=== PATIENT | male | born 1965 | race Caucasian/White ===

== ENCOUNTER 2018-10-15 16:41 | Emergency (ER) | payer SELFPAY ==
[~2018-10-15] VITALS: Ht 185.4 cm; Wt 93.0 kg
[2018-10-15] MEDS ORDERED: LIDOCAINE 2% 20 ML (XYLOCAINE) VIAL INJ ONE (17:15)
[2018-10-15] MEDS ORDERED: CLINDAMYCIN 900 MG/50 ML IVPB 50 ML IV ONE (17:15)
--- NOTE | 2018-10-15 17:20 | ED Integumentary General ---
General Stated Complaint: SCROTUM WOUND INFECTION Source: patient Exam Limitations: no limitations History of Present Illness Date Seen by Provider: Oct 15, 2018 Time Seen by Provider: 17:15 Initial Comments To ER with reports of a an infection to the groin. He's been seen by primary care and had incision and drainage done to this at [facility] on 10/12/18. He is on Bactrim at this time. Culture results show Staphylococcus aureus without evidence of resistance to oxacillin/methicillin. Wound persists. He was seen by primary care today and referred here to the emergency room due to concerns for "gangrene". He is not diabetic. Timing/Duration: just prior to arrival Severity: moderate Location: genitalia Allergies and Home Medications Allergies Coded Allergies: ibuprofen (Verified Allergy, Unknown, 10/15/18) Home Medications Clindamycin HCl 300 Mg Capsule, 300 MG PO TID Prescribed by: WES WEBB on 10/15/181847 Hydrocodone/Acetaminophen 1 Each Tablet, 1 EACH PO Q6H PRN for PAIN-MODERATE Prescribed by: WES WEBB on 10/15/181847 Patient Home Medication List Home Medication List Reviewed: Yes Review of Systems Review of Systems Constitutional: see HPI, chills; No fever EENTM: see HPI Respiratory: no symptoms reported Cardiovascular: no symptoms reported Genitourinary: no symptoms reported Musculoskeletal: no symptoms reported Skin: see HPI Psychiatric/Neurological: No Symptoms Reported Endocrine: No Symptoms Reported Past Tzgsful-Jdwklv-Jsrsjh Hx Patient Social History Recent Foreign Travel: No Contact w/Someone Who Travel: No Physical Exam Vital Signs Vital Signs - First Documented 10/15/18 17:08 Temp 96.9 Pulse 76 Resp 18 B/P (MAP) 140/95 (110) Pulse Ox 97 O2 Delivery Room Air Capillary Refill : General Appearance: WD/WN, no apparent distress HEENT: PERRL/EOMI, normal ENT inspection Respiratory: no respiratory distress, no accessory muscle use Neurologic/Psychiatric: alert, normal mood/affect, oriented x 3 Skin: normal color, warm/dry, other (there is an area about 3 cm in diameter to the left side of the mons pubis superior to the scrotum with significant induration. Within this is a central punctum from the incision and drainage wound where there continues to be some purulent material able to be expressed. Surrounding this incision is about 5 cm of erythema. The scrotum itself is not erythematous, there is no crepitus or thickening of the skin of the scrotum to suggest scrotal cellulitis or fourniers gangrene.) Skin Problem Character: abscess Procedures/Interventions I&D : Blade Size: 11 Progress Anesthetized with 0.2 mL of lidocaine without epinephrine. Stab incision made with 11 blade scalpel. Moderate amount of purulent material expressed. Progress/Results/Core Measures Results/Orders Lab Results Laboratory Tests Test 10/15/18 17:21 Range/Units White Blood Count 9.2 4.3-11.0 10^3/uL Red Blood Count 5.17 4.35-5.85 10^6/uL Hemoglobin 16.4 13.3-17.7 G/DL Hematocrit 47 40-54 % Mean Corpuscular Volume 90 80-99 FL Mean Corpuscular Hemoglobin 32 25-34 PG Mean Corpuscular Hemoglobin Concent 35 32-36 G/DL Red Cell Distribution Width 13.1 10.0-14.5 % Platelet Count 276 130-400 10^3/uL Mean Platelet Volume 9.5 7.4-10.4 FL Neutrophils (%) (Auto) 57 42-75 % Lymphocytes (%) (Auto) 29 12-44 % Monocytes (%) (Auto) 8 0-12 % Eosinophils (%) (Auto) 6 0-10 % Basophils (%) (Auto) 0 0-10 % Neutrophils # (Auto) 5.2 1.8-7.8 X 10^3 Lymphocytes # (Auto) 2.6 1.0-4.0 X 10^3 Monocytes # (Auto) 0.7 0.0-1.0 X 10^3 Eosinophils # (Auto) 0.6 H 0.0-0.3 10^3/uL Basophils # (Auto) 0.0 0.0-0.1 10^3/uL Sodium Level 138 135-145 MMOL/L Potassium Level 3.8 3.6-5.0 MMOL/L Chloride Level 107 98-107 MMOL/L Carbon Dioxide Level 19 L 21-32 MMOL/L Anion Gap 12 5-14 MMOL/L Blood Urea Nitrogen 8 7-18 MG/DL Creatinine 1.07 0.60-1.30 MG/DL Estimat Glomerular Filtration Rate > 60 BUN/Creatinine Ratio 7 Glucose Level 110 H 70-105 MG/DL Calcium Level 9.4 8.5-10.1 MG/DL My Orders Orders - WES WEBB REGISTERED MIDWIFE Cbc With Automated Diff (10/15/18 17:13) Basic Metabolic Panel (10/15/18 17:13) Ct Pelvis W (10/15/18 17:13) Lidocaine 2% Injection 20 Ml (Xylocaine (10/15/18 17:15) Clindamycin 900 Mg/50 Ml Ivpb (Cleocin P (10/15/18 17:15) Iohexol Injection (Omnipaque 350 Mg/Ml 1 (10/15/18 18:00) Contrast Received (Contrast Received) (10/15/18 18:00) Ns (Ivpb) (Sodium Chloride 0.9%) (10/15/18 18:00) Lidocaine 1% Inj 20 Ml (Xylocaine 1% Inj (10/15/18 18:02) Lidocaine 1% Inj 20 Ml (Xylocaine 1% Inj (10/15/18 18:45) Medications Given in ED Current Medications Medications Dose Ordered Sig/Lewis Route Start Time Stop Time Status Last Admin Dose Admin Clindamycin Phosphate/Dextrose 50 ml @ 100 mls/hr ONCE ONCE IV 10/15/18 17:15 12 17:44 DC 10/15/18 18:16 100 MLS/HR Iohexol 100 ml ONCE ONCE IV 10/15/18 18:00 10/15/18 18:01 DC 10/15/18 18:02 100 ML Lidocaine HCl 20 ml STK-MED ONCE .ROUTE 10/15/18 18:02 10/15/18 18:05 DC 10/15/18 18:16 20 ML Sodium Chloride 250 ml ONCE ONCE IV 10/15/18 18:00 10/15/18 18:01 DC 10/15/18 18:02 80 ML Vital Signs/I&O 10/15/18 17:08 Temp 96.9 Pulse 76 Resp 18 B/P (MAP) 140/95 (110) Pulse Ox 97 O2 Delivery Room Air Departure Communication (Admissions) 0972-labs are unremarkable. CT shows inflammatory change but no fluid collection. No soft tissue gas to support foreign use gangrene. This been ongoing for nearly a week. I will add clindamycin to his outpatient regimen and we will discharge to home for follow-up within 24-48 hours. I discussed with Dr. Beckman and she agrees with this plan. Impression Primary Impression: Abscess of pubic region Disposition: 01 HOME, SELF-CARE Condition: Stable Departure-Patient Inst. Decision time for Depature: 18:25 Referrals: [facility] (PCP/Family) Primary Care Physician Patient Instructions: Abscess Incision and Drainage (DC) Add. Discharge Instructions: 1. Warm compresses to this area 2. Change the gauze as needed to collect the drainage 3. Take your dose of Bactrim tonight then stop the Bactrim tomorrow and replace it with a new medication called clindamycin. 4. REturn PROMPTLY to Er for any increasing redness, pain, fevers. Call your regular doctor tomorrow to make an appointment to be seen within 24-48 hours. Scripts Hydrocodone/Acetaminophen ([place] 5-325 Tablet) 1 Each Tablet 1 EACH PO Q6H PRN for PAIN-MODERATE MDD 10, #10 TAB Prov: WES WEBB APRN 10/15/18 Clindamycin HCl (Clindamycin HCl) 300 Mg Capsule 300 MG PO TID, #21 CAP Prov: WES WEBB APRN 10/15/18 Work/School Note: Work Release Form Date Seen in the Emergency Department: Oct 15, 2018 Return to Work: Oct 21, 2018 Images Female/Male 1 - Cellulitis WES WEBB APRN Oct 15, 2018 17:20
--- OUTSIDE RECORDS SUMMARY | 2018-10-15 17:26 | XMS REPORT | Continuity of Care Document ---
Author Author [facility] Address Unknown Phone Unavailable Allergies Active Description Code Type Severity Reaction Onset Reported/Identified Relationship to Patient Clinical Status Yes Motrin Drug Allergy N/A N/A 12/17/2013 Medications There is no data. Problems Date Dx Coded Attending Type Code Diagnosis Diagnosed By 12/17/2013 MISHA ORDONEZ APRN 782.9 dry skin Procedures There is no data. Results There is no data. Encounters ACCT No. Visit Date/Time Discharge Status Pt. Type Provider Facility Loc./Unit Complaint [id number] 12/17/2013 08:56:00 12/17/2013 23:59:59 CLS Outpatient MISHA ORDONEZ APRN
--- OUTSIDE RECORDS SUMMARY | 2018-10-15 17:26 | XMS REPORT ---
Author MISHA Victoria [facility] eClinicalWorks Address Unknown Phone Unavailable Care Team Providers Care Safety Patrol Officer Name Role Phone MISHA ORDONEZ CP Unavailable Allergies No Known Allergies Problems Problem Type Condition Code Onset Dates Condition Status Assessment Routine history and physical examination of adult V70.0 Active Assessment Urinary frequency R35.0 Active Medications No Known Medications Procedures Procedure Coding System Code Date ASSAY OF PSA, FREE CPT-4 66046 May 17, 2016 LIPID PANEL CPT-4 64747 May 17, 2016 ASSAY OF PSA, TOTAL CPT-4 88062 May 17, 2016 VENIPUNCT, ROUTINE* CPT-4 60526 May 17, 2016 COMPREHEN METABOLIC PANEL CPT-4 23727 May 17, 2016 Results No Known Results Summary Purpose Storage By [employer] Submission
--- OUTSIDE RECORDS SUMMARY | 2018-10-15 17:26 | XMS REPORT ---
Author Author MISHA ORDONEZ [facility] [place] Address [address] [place] [address] Care Team Providers Care Pattern Marker Name Role Phone MISHA ORDONEZ Unavailable PROBLEMS Type Condition ICD9-CM Code [id number] Code Onset Dates Condition Status SNOMED Code Problem Wheezing R06.2 Active 53650972 Problem Tobacco abuse counseling Z71.6 Active 677974436 Problem Acute non-recurrent frontal sinusitis J01.10 Active 87169843 ALLERGIES Substance Reaction Event Type Date Status Motrin rash Drug Allergy Apr, Active ENCOUNTERS Encounter Location Date Diagnosis [facility] [place] [address] [id number] [place] [phone] Apr, Allergic rhinitis, unspecified seasonality, unspecified trigger J30.9 ; Bronchitis J40 ; Tobacco abuse Z72.0 and Tobacco abuse counseling Z71.6 [facility] [address] [id number] [place] [id number] Nov, Acute non-recurrent frontal sinusitis J01.10 ; Wheezing R06.2 and Tobacco abuse counseling Z71.6 [facility] [place] [address] [facility] [address] [id number] JOSEPH[place] [id number] Dec, Bronchitis J40 ; Tobacco abuse Z72.0 ; Tobacco abuse counseling Z71.6 and Acute non-recurrent maxillary sinusitis J01.00 [facility]ENTERPurkinjeANGELA [facility]ILLE [address] [facility] [address] [id number] [place] [id number] Dec, [facility] [id number] JOSEPH[place] [id number] Jul, [facility]Group[facility]alent [facility] [id number] [place] [id number] May, [facility]ITAL[facility] EasyMAR[address]ZANGEL[place] [address] [id number] JOSE[place] [id number] May, Urinary frequency R35.0 and Routine history and physical examination of adult V70.0 [facility] [address] [id number] [place] [id number] May, Right groin pain R10.30 ; S/P unilateral hernia repair Z98.89 ; Urinary frequency R35.0 ; Overweight E66.3 and Diabetes mellitus screening Z13.1 [facility] [address] [id number] JOSEPH[place] [id number] March, Bronchitis J40 ; Tobacco abuse Z72.0 ; Tobacco abuse counseling Z71.6 and Acute non-recurrent sinusitis, unspecified location J01.90 [facility] [address] [id number] JO[place]PH[place] [phone] May, zzCHCSEK [place] [address] [facility] [id number] [place] [id number] May, [facility] [address] [id number] JOSE[place] [id number] May, [address] [id number] JOSEPH, [place] [phone] May, [address] [id number] [place] [id number] May, Inguinal hernia 550.90 and Routine history and physical examination of adult V70.0 [facility]ENTERSEK [address] [id number] JOSEPH[place] [id number] May, [address] [id number] [place] [phone] May, Inguinal hernia 550.90 and Routine history and physical examination of adult V70.0 [facility] [place] [address] [id number] JOSEPH[place] [id number] May, Allergic rhinitis 477.9 ; Sebaceous cyst 706.2 and Headache 784.0 [facility] [place] [address] [facility] [id number] SPR[place] [id number] Feb, [facility] [place] [address] [facility] [id number] [place] [address] Feb, [facility] [place] [address] [facility] [id number] [place] [address] Jan, [facility] [place] [address] [facility] [id number] [place] [address] Jan, [facility] [place] [address] [facility] [id number] [place] [address] Dec, [facility] [place] [address] [facility] [id number] [place] [address] Dec, IMMUNIZATIONS Vaccine Route Administration Date Status SOLUMEDROL (UP TO 125 MG) IM Intramuscular April 26, 2018 Administered SOCIAL HISTORY Never Assessed REASON FOR VISIT Dry cough and sinus congestion/drainage x 3 days. [email or web address] PLAN OF CARE Activity Details Follow Up prn Reason: VITAL SIGNS Height 70 in 2018-04-26 Weight 209.2 lbs 2018-04-26 Temperature 98.6 degrees Fahrenheit 2018-04-26 Heart Rate 70 bpm 2018-04-26 Respiratory Rate 16 2018-04-26 BMI 30.01 kg/m2 2018-04-26 Blood pressure systolic 124 mmHg 2018-04-26 Blood pressure diastolic 68 mmHg 2018-04-26 MEDICATIONS Medication Instructions Dosage Frequency Start Date End Date Duration Status ProAir HFA 108 (90 Base) MCG/ACT Inhalation every 4-6 hours as needed 2 puffs as needed Dec, Not-Taking Rhinocort Allergy 32 MCG/ACT Nasally Once a day 1 puffs in each nostril 24h Dec, Not-Taking Ventolin HFA 108 (90 Base) MCG/ACT Inhalation every 6 hrs 2 puffs as needed 6h Nov, 07 days Not-Taking Benadryl 25 mg 1-2 capsule by Oral route every 4-6 hours PRN Dec, Not-Taking Cetirizine HCl 10 mg Orally Once a day 1 tablet 24h March, Active Simvastatin 20 mg Orally Once a day 1 tablet in the evening 24h May, Not-Taking Flomax 0.4 MG Orally Once a day 1 capsule 24h May, Not- Taking Mometasone Furoate 50 MCG/ACT Nasally Once a day 2 sprays in each nostril 24h Apr, Active ProAir RespiClick 108 (90 Base) MCG/ACT Inhalation every 6 hrs 2 puffs as needed 6h Apr, Active RESULTS No Results PROCEDURES No Known procedures INSTRUCTIONS MEDICATIONS ADMINISTERED No Known Medications MEDICAL (GENERAL) HISTORY Type Description Date Medical History inguinal hernia Surgical History cholecystectomy 2009 Surgical History hernia repair 07/21 Hospitalization History Surgery(s) only
--- OUTSIDE RECORDS SUMMARY | 2018-10-15 17:26 | XMS REPORT ---
Author Author LEIDA LAU [facility] Address [address] [place] [address] Care Team Providers Care Database Specialist Name Role Phone LEIDA LAU Unavailable PROBLEMS Type Condition ICD9-CM Code FOI17-FN Code Onset Dates Condition Status SNOMED Code Problem Wheezing R06.2 Active 56991517 Problem Tobacco abuse counseling Z71.6 Active 616534267 Problem Acute non-recurrent frontal sinusitis J01.10 Active 54816812 ALLERGIES Substance Reaction Event Type Date Status Motrin rash Drug Allergy Nov, Active ENCOUNTERS Encounter Location Date Diagnosis [facility] [address] [id number], [place] [phone] Nov, Acute non-recurrent frontal sinusitis J01.10 ; Wheezing R06.2 and Tobacco abuse counseling Z71.6 [facility] [address] [id number], [place] [phone] Dec, Bronchitis J40 ; Tobacco abuse Z72.0 ; Tobacco abuse counseling Z71.6 and Acute non-recurrent maxillary sinusitis J01.00 [facility] [address] [facility] [address] [id number], [place] [id number] Dec, [facility]ITALApange[facility] Learning [facility] [address] [facility] [address] [id number], [place] [phone] Jul, [facility] [address] [id number], [place] [phone] May, [facility] [address] [facility] [address] [id number], [place] [id number] May, Urinary frequency R35.0 and Routine history and physical examination of adult V70.[address] [id number], [place] [id number] May, Right groin pain R10.30 ; S/P unilateral hernia repair Z98.89 ; Urinary frequency R35.0 ; Overweight E66.3 and Diabetes mellitus screening Z13.1 [facility] [address] [id number], [place] [id number] March, Bronchitis J40 ; Tobacco abuse Z72.0 ; Tobacco abuse counseling Z71.6 and Acute non-recurrent sinusitis, unspecified location J01.90 [facility] [address] [id number], [place] [id number] May, zzCHCSEK [place] [address] [facility] [id number], [place] [phone] May, [facility] [address] [id number], [place] [phone] May, [facility] [address] [id number], [place] [id number] May, [facility] [address] [id number], [place] [id number] May, Inguinal hernia 550.90 and Routine history and physical examination of adult V70.0 [facility] [address] [id number], [place] [phone] May, [facility] [address] [id number], [place] [id number] May, Inguinal hernia 550.90 and Routine history and physical examination of adult V70.0 [facility] [address] [id number], [place] [id number] May, Allergic rhinitis 477.9 ; Sebaceous cyst 706.2 and Headache 784.0 [facility] [id number] [address] Feb, [facility] [id number] [place] [address] Feb, [facility] [id number] [place] [address] Jan, [facility] [address] [facility] [id number] [address] Jan, [facility] [address] [facility] [id number] [address] Dec, [facility] [address] [facility] [id number] [address] Dec, IMMUNIZATIONS No Known Immunizations SOCIAL HISTORY Never Assessed REASON FOR VISIT Sinus c/o, cough, headaches and sinus congestion.[facility] INTERVIEWS INTERN PLAN OF CARE Activity Details Follow Up prn Reason: VITAL SIGNS Height 70 in 2017-11-09 Weight 207.0 lbs 2017-11-09 Temperature 100.7 degrees Fahrenheit 2017-11-09 Heart Rate 83 bpm 2017-11-09 Respiratory Rate 18 2017-11-09 Oximetry 95 % 2017-11-09 BMI 29.70 kg/m2 2017-11-09 Blood pressure systolic 124 mmHg 2017-11-09 Blood pressure diastolic 82 mmHg 2017-11-09 MEDICATIONS Medication Instructions Dosage Frequency Start Date End Date Duration Status Benadryl 25 mg 1-2 capsule by Oral route every 4-6 hours PRN Dec, Not-Taking Cetirizine HCl 10 mg Orally Once a day 1 tablet 24h March, Not -Taking Flomax 0.4 MG Orally Once a day 1 capsule 24h May, Not- Taking Augmentin 875-125 MG Orally every 12 hrs 1 tablet 12h Nov,Nov 14 days Active ProAir HFA 108 (90 Base) MCG/ACT Inhalation every 4-6 hours as needed 2 puffs as needed Dec, Not-Taking Rhinocort Allergy 32 MCG/ACT Nasally Once a day 1 puffs in each nostril 24h Dec, Not-Taking Simvastatin 20 mg Orally Once a day 1 tablet in the evening 24h May, Not-Taking Ventolin HFA 108 (90 Base) MCG/ACT Inhalation every 6 hrs 2 puffs as needed 6h Nov, 07 days Active RESULTS Name Result Date Reference Range INFLUENZA A & B (IN HOUSE) 2017-11-09 INFLUENZA A neg INFLUENZA B neg Control pos Lot # [id number] Exp date 02/03/2020 PROCEDURES Procedure Date Ordered Result Body Site MEASURE BLOOD OXYGEN LEVEL Nov 09, 2017 ALBUTEROL INHAL UNIT DOSE 1 MG Nov 09, 2017 INFLUENZA ASSAY W/OPTIC Nov 09, 2017 NEB/MDI RX INITIAL Nov 09, 2017 INSTRUCTIONS MEDICATIONS ADMINISTERED No Known Medications MEDICAL (GENERAL) HISTORY Type Description Date Medical History inguinal hernia Surgical History cholecystectomy 2009 Surgical History hernia repair 07/21 Hospitalization History Surgery(s) only
--- OUTSIDE RECORDS SUMMARY | 2018-10-15 17:26 | XMS REPORT ---
Author MISHA [facility] eClinicalWorks Address Unknown Phone Unavailable Care Team Providers Care Purse Seiner Name Role Phone MISHA ORDONEZ CP Unavailable Allergies, Adverse Reactions, Alerts Substance Reaction Event Type Motrin rash Drug Allergy Problems Problem Type Condition Code Onset Dates Condition Status Assessment S/P unilateral hernia repair Z98.89 Active Assessment Urinary frequency R35.0 Active Assessment Right groin pain R10.30 Active Assessment Overweight E66.3 Active Assessment Diabetes mellitus screening Z13.1 Active Medications Medication Code System Code Instructions Start Date End Date Status Dosage Flomax [facility] [address]-13 0.4 MG Orally Once a day May 16, 2016 1 capsule Procedures Procedure Coding System Code Date Office Visit, Est Pt., Level 4 CPT-4 58442 May 16, 2016 URINALYSIS, AUTO, W/O SCOPE CPT-4 98450 May 16, 2016 Vital Signs Date/Time: May 16, 2016 Cardiac Monitoring Heart Rate 83 bpm Weight 202.4 lbs Height 70 in Blood Pressure Diastolic 64 mmHg Blood Pressure Systolic 120 mmHg Results No Known Results Summary Purpose eClinicalWorks Submission
--- OUTSIDE RECORDS SUMMARY | 2018-10-15 17:26 | XMS REPORT ---
Author Author MISHA ORDONEZ [facility] Address [address] [place] [address] Care Team Providers Care Supervisor Public Message Service Name Role Phone MISHA ORDONEZ Unavailable PROBLEMS Unknown Problems ALLERGIES Unknown Allergies SOCIAL HISTORY No smoking Hx information available PLAN OF CARE VITAL SIGNS MEDICATIONS Unknown Medications RESULTS No Results PROCEDURES No Known procedures IMMUNIZATIONS No Known Immunizations
--- OUTSIDE RECORDS SUMMARY | 2018-10-15 17:26 | XMS REPORT ---
Author MISHA [facility] Address [address] [place] [address] Care Team Providers Care Upholstery Mechanic Name Role Phone MISHA ORDONEZ Unavailable PROBLEMS Unknown Problems ALLERGIES No Information SOCIAL HISTORY Never Assessed PLAN OF CARE VITAL SIGNS MEDICATIONS No Known Medications RESULTS No Results PROCEDURES No Known procedures IMMUNIZATIONS No Known Immunizations MEDICAL (GENERAL) HISTORY Type Description Date Medical History inguinal hernia Surgical History cholecystectomy 2009 Surgical History hernia repair 07/21 Hospitalization History Surgery(s) only
--- OUTSIDE RECORDS SUMMARY | 2018-10-15 17:26 | XMS REPORT ---
Author Author MISHA ORDONEZ [facility] Address [address] [place] [address] Care Team Providers Care Carbonation Equipment Tender Name Role Phone MISHA ORDONEZ Unavailable PROBLEMS Unknown Problems ALLERGIES Substance Reaction Event Type Date Status Motrin rash Drug Allergy Dec, Active SOCIAL HISTORY Never Assessed PLAN OF CARE Activity Details Follow Up prn Reason: VITAL SIGNS Height 70 in 2016-12-31 Weight 205 lbs 2016-12-31 Temperature 97.5 degrees Fahrenheit 2016-12-31 Heart Rate 82 bpm 2016-12-31 Respiratory Rate 16 2016-12-31 BMI 29.41 kg/m2 2016-12-31 Blood pressure systolic 118 mmHg 2016-12-31 Blood pressure diastolic 68 mmHg 2016-12-31 MEDICATIONS Medication Instructions Dosage Frequency Start Date End Date Duration Status Rhinocort Allergy 32 MCG/ACT Nasally Once a day 1 puffs in each nostril 24h Dec, Active ProAir HFA 108 (90 Base) MCG/ACT Inhalation every 4-6 hours as needed 2 puffs as needed Dec, Active Doxycycline Hyclate 100 mg Orally every 12 hrs 1 capsule 12h Dec, Jan, 10 days Active RESULTS No Results PROCEDURES No Known procedures IMMUNIZATIONS No Known Immunizations MEDICAL (GENERAL) HISTORY Type Description Date Medical History inguinal hernia Surgical History cholecystectomy 2009 Surgical History hernia repair 07/21 Hospitalization History Surgery(s) only
[2018-10-15 17:33] LABS: BASOPHILS % (AUTO) 0 % (0-10); EOSINOPHILS # (AUTO) 0.6 10^3/uL (0.0-0.3); EOSINOPHILS % (AUTO) 6 % (0-10); HEMATOCRIT 47 % (40-54); HEMOGLOBIN 16.4 G/DL (13.3-17.7); LYMPHOCYTES # (AUTO) 2.6 X 10^3 (1.0-4.0); LYMPHOCYTES % (AUTO) 29 % (12-44); MEAN CORPUSCULAR HEMOGLOBIN 32 PG (25-34); MEAN CORPUSCULAR HGB CONC 35 G/DL (32-36); MEAN CORPUSCULAR VOLUME 90 FL (80-99); MEAN PLATELET VOLUME 9.5 FL (7.4-10.4); MONOCYTES # (AUTO) 0.7 X 10^3 (0.0-1.0); MONOCYTES % (AUTO) 8 % (0-12); NEUTROPHILS # (AUTO) 5.2 X 10^3 (1.8-7.8); NEUTROPHILS % (AUTO) 57 % (42-75); PLATELET COUNT 276 10^3/uL (130-400); RED BLOOD COUNT 5.17 10^6/uL (4.35-5.85); RED CELL DISTRIBUTION WIDTH 13.1 % (10.0-14.5); WHITE BLOOD COUNT 9.2 10^3/uL (4.3-11.0)
[2018-10-15 17:47] LABS: BUN/CREATININE RATIO 7; CALCIUM 9.4 MG/DL (8.5-10.1); CARBON DIOXIDE 19 MMOL/L (21-32); CHLORIDE 107 MMOL/L (98-107); CREATININE SERUM 1.07 MG/DL (0.60-1.30); GFR ESTIMATED > 60; GLUCOSE 110 MG/DL (70-105); POTASSIUM 3.8 MMOL/L (3.6-5.0); SODIUM 138 MMOL/L (135-145)
[2018-10-15] MEDS ORDERED: BACTRIM (17:48)
[2018-10-15] MEDS ORDERED: RECEIVED CONTRAST (Hold Metformin) IV SCH (18:00)
[2018-10-15] MEDS ORDERED: IOHEXOL 350 MG/ML 100 ML (OMNIPAQUE 350) VIAL IV ONE (18:00)
[2018-10-15] MEDS ORDERED: NS 250 ML (IVPB) BAG IV ONE (18:00)
[2018-10-15] MEDS ORDERED: LIDOCAINE 1% INJ 20 ML 20 ML VIAL ONE (18:02)
--- NOTE | 2018-10-15 18:36 | Diagnostic Imaging Report ---
PROCEDURE: CT pelvis with contrast. TECHNIQUE: Oral and intravenous contrast were administered with pelvic CT performed. INDICATION: Scrotal abscess. COMPARISON: None. FINDINGS: There is marked stranding and edema in the left inguinal subcutaneous fat, extending into the visualized scrotum. No focal fluid collection is demonstrated. No soft tissue gas. There may be a small left hydrocele. There are scattered enlarged left inguinal lymph nodes, which are likely reactive in nature. The right testicle appears normal, with possible small hydrocele also noted on the right. The visualized colon and small bowel are normal. The appendix is visualized and is normal. The vascular structures are normal. The bladder appears circumferentially thick walled, which may be secondary to underdistention. The prostate gland is mildly enlarged, measuring up to 5.6 cm in transverse diameter. No acute osseous abnormality. IMPRESSION: Marked inflammatory change involving the left inguinal region extending into the scrotum. No focal fluid collection is demonstrated. No soft tissue gas is seen. Findings likely reflect cellulitis. If indicated, scrotal ultrasound may be of benefit in further evaluation. There is mild prominence of several left inguinal lymph nodes, which are likely reactive in nature. Dictated by: Dictated on workstation # [id number]
[2018-10-15] MEDS ORDERED: LIDOCAINE 1% INJ 20 ML 20 ML VIAL INJ ONE (18:45)
[2018-10-15] MEDS ORDERED: HYDR-4226 PO (18:48)
[2018-10-15] MEDS ORDERED: CLIN300C11 PO (18:48)
[2018-10-15 19:23] VITALS: BP 134/86
== END 2018-10-15 19:23 | disposition home or self-care (01) ==
LOC: ER 16:43
DX: L02.214 Cutaneous abscess of groin (principal); Z86.19 Personal history of other infectious and parasitic diseases; Z88.6 Allergy status to analgesic agent
CPT/HCPCS: 10060; 36415; 72193; 80048; 85025; 96365